=== PATIENT | female | born 1945 | race Hispanic/Latino ===

== ENCOUNTER → 2022-03-07 | Outpatient (CLI) | payer OTHER ==
[2022-03-07 12:31] LABS: BASOPHILS % (AUTO) 1.2 % (0.0-5.0); LYMPHOCYTES % (AUTO) 31.7 % (21.0-51.0); MEAN CORPUSCULAR HEMOGLOBIN 29.8 pg (27.0-33.0); MEAN CORPUSCULAR HGB CONC 31.7 g/dL (32.0-36.0); MONOCYTES % (AUTO) 14.9 % (3.0-13.0); PLATELET COUNT (AUTO) 253 K/uL (130-400); RED BLOOD CELL COUNT(AUTO) 3.83 MIL/uL (4.00-5.50); RED CELL DISTRIBUTION WIDTH 14.1 % (11.0-15.5); WHITE BLOOD COUNT (AUTO) 4.2 K/uL (4.8-10.8)
[2022-03-07 12:33] LABS: ALBUMIN 3.3 g/dL (3.5-5.0); CREATININE 0.6 mg/dL (0.5-1.5); MAGNESIUM 2.2 mg/dL (1.80-2.40); POTASSIUM 3.9 mmol/L (3.5-5.1); TOTAL PROTEIN, SERUM 7.2 g/dL (6.0-8.3)
== END | disposition home or self-care (01) ==
LOC: LAB 10:34
PROVIDERS: ATTEND Physician Assistant
DX: R68.2 Dry mouth, unspecified (principal); R00.1 Bradycardia, unspecified
CPT/HCPCS: 36415; 80053; 83735; 85025; 86038; 86215; 86235

== ENCOUNTER 2022-11-01 06:48 | Day surgery (SDC) | payer OTHER ==
[2022-10-31 11:44] LABS: BASOPHILS % (AUTO) 0.8 % (0.0-5.0); EOSINOPHILS % (AUTO) 3.9 % (0.0-8.0); LYMPHOCYTES % (AUTO) 27.3 % (21.0-51.0); MEAN CORPUSCULAR HEMOGLOBIN 28.9 pg (27.0-33.0); MEAN CORPUSCULAR HGB CONC 31.4 g/dL (32.0-36.0); MEAN CORPUSCULAR VOLUME 91.9 fL (79-99); MONOCYTES % (AUTO) 10.8 % (3.0-13.0); PLATELET COUNT (AUTO) 273 K/uL (130-400); RED BLOOD CELL COUNT(AUTO) 3.81 MIL/uL (4.00-5.50); RED CELL DISTRIBUTION WIDTH 14.6 % (11.0-15.5); WHITE BLOOD COUNT (AUTO) 4.8 K/uL (4.8-10.8)
[2022-10-31 11:45] VITALS: BP 115/49
[2022-10-31 11:59] LABS: CREATININE 0.5 mg/dL (0.5-1.5); MAGNESIUM 2.2 mg/dL (1.80-2.40); POTASSIUM 4.2 mmol/L (3.5-5.1)
[2022-10-31 12:01] LABS: INR 0.97 (0.85-1.15); PROTHROMBIN TIME 10.6 SEC (9.6-11.6)
[2022-10-31 12:02] LABS: PARTIAL THROMBOPLASTIN TIME 30.2 SEC (26.3-35.5)
[2022-11-01] VITALS (10 sets, daily range): BP systolic 136–212; BP diastolic 65–93
[~2022-11-01] VITALS: Ht 154.9 cm; Wt 46.3 kg
[~2022-11-01 06:48] MED LIST: ATOR40TA69 PO; BRIM5DRO5 OU; FLUD.1 PO; MIRT-22 PO; PRIM50TA23 PO; TRAV2.5D OU
[2022-11-01] MEDS ORDERED: 0.9%NACL 1000ML 1,000 ML IV ONE (07:08)
[2022-11-01] MEDS ORDERED: LIDOCAINE HCL 1% MDV 50ML VIAL ONE (08:49)
[2022-11-01] MEDS ORDERED: BUPIVACAINE/PF 0.25% 10ML VIAL IJ ONE (08:49)
[2022-11-01] MEDS ORDERED: MEPERIDINE-PF 25 MG/ML SYG ONE (08:50)
[2022-11-01] MEDS ORDERED: CEFAZOLIN SODIUM 1 GM VIAL ONE (08:50)
[2022-11-01] MEDS ORDERED: MIDAZOLAM HCL 1 MG/ML 2ML VIAL ONE (08:50)
[2022-11-01] MEDS ORDERED: TRAM50TA4 PO (10:46)
[2022-11-01] MEDS ORDERED: ACETAMINOPHEN 500 MG TABLET ONE (10:59)
[2022-11-01] MEDS ORDERED: ACETAMINOPHEN WITH CODEINE 1 TAB TAB PO PRN (11:00)
[2022-11-01] MEDS ORDERED: ACETAMINOPHEN 500 MG TABLET PO PRN (11:00)
== END 2022-11-01 15:10 | disposition home or self-care (01) ==
LOC: DAH 06:48
PROVIDERS: ATTEND Internal Medicine Cardiovascular Disease
DX: I49.5 Sick sinus syndrome (principal); G90.01 Carotid sinus syncope; I95.1 Orthostatic hypotension; Z79.899 Other long term (current) drug therapy; Z79.01 Long term (current) use of anticoagulants; Z90.49 Acquired absence of other specified parts of digestive tract; Z98.890 Other specified postprocedural states; Z98.84 Bariatric surgery status; Z82.49 Family history of ischemic heart disease and other diseases of the circulatory system; Z88.8 Allergy status to other drugs, medicaments and biological substances; Z88.3 Allergy status to other anti-infective agents
CPT/HCPCS: 83735; 80048; 85025; 85610; 85730; 36415; 93005; 33208; 71045; C1785; C1898 ×2; J0690; J7030; J2250; J3490 ×2; J2175; A4215; A4222; A4221; A4663; A4216; A4606; A4223 ×3; 99156; 99157